=== PATIENT | female | born 1965 | race African-American/Black ===

== ENCOUNTER 2020-05-06 09:31 | Inpatient (IN) | payer OTHER ==
--- NOTE | 2020-05-06 09:54 | PDOC ---
History of Present Illness - General Chief Complaint: Allergic Reaction Stated Complaint: MOUTH PAIN Time Seen by Provider: 05/06/20 09:54 History Source: Patient Exam Limitations: No Limitations - History of Present Illness Initial Comments: 05/06/20 10:53 55F with PMH of HTN on lisinopril and obesity presents to the ED with upper lip swelling that started around 03:00 this morning. This has never happened before. Denies recent insect bites/stings or food allergies. Reports rash of arms bilaterally over the past few weeks. Denies difficulty breathing, difficulty swallowing, rash/hives, chest pain, or lightheadedness. PMH: as in HPI SH: see below Meds: carvedilol, lisinopril Allergies: PCN Tob/Etoh/Rec drugs: neg x3 PCP: CIELO Downs GENERAL/CONSTITUTIONAL: No fever or chills. No weakness. HEENT: No change in vision. No ear pain or discharge. No sore throat. CARDIOVASCULAR: No chest pain or shortness of breath RESPIRATORY: No cough, wheezing, or hemoptysis. GASTROINTESTINAL: No nausea, vomiting, diarrhea or constipation. GENITOURINARY: No dysuria, frequency, or change in urination. MUSCULOSKELETAL: No joint or muscle swelling or pain. No neck or back pain. SKIN: No rash NEUROLOGIC: No headache, vertigo, loss of consciousness, or change in strength/sensation. ENDOCRINE: No increased thirst. No abnormal weight change HEMATOLOGIC/LYMPHATIC: No anemia, easy bleeding, or history of blood clots. ALLERGIC/IMMUNOLOGIC: No hives or skin allergy. PE GENERAL: Awake, alert, and fully oriented; no acute distress HEAD: No signs of trauma, normocephalic, atraumatic EYES: PERRLA, EOMI, sclera anicteric, conjunctiva clear ENT: Auricles normal inspection, nares patent, moist mucosa, oropharynx clear without exudates. NECK: Normal ROM, supple, no LAD, JVD, or masses HEART: Regular rate and rhythm, normal S1/S2, no murmurs, rubs or gallops, peripheral pulses normal and equal bilaterally. LUNGS: No distress, speaks full sentences, clear to auscultation bilaterally ABDOMEN: Soft, nontender. No guarding, no rebound. No masses EXTREMITIES: Normal inspection, Normal range of motion, no edema. No clubbing or cyanosis. NEUROLOGICAL: CNII-XII grossly intact. Normal speech, no focal sensorimotor deficits SKIN: Warm, Dry, normal turgor, no rashes or lesions noted Assessment and Plan 1. Angioedema 2/2 RAVEN Inhibitor - basic labs, suspecting admission 2. Allergic reaction Lance Redman, PGY1 Emergency Medicine Past History - Medical History Allergies/Adverse Reactions: Allergies Allergy/AdvReac Type Severity Reaction Status Date / Time Penicillins Allergy Severe Verified 05/06/20 09:34 Home Medications: Ambulatory Orders Carvedilol [Coreg -] 12.5 mg PO BID 05/06/20 Lisinopril [Prinivil -] 40 mg PO DAILY 05/06/20 COPD: No HTN: Yes - Surgical History Cholecystectomy: Yes - Reproductive History Is Patient Now?: No - Immunization History Immunization Up to Date: Yes - Psycho-Social/Smoking History Smoking History: Never smoked - Substance Abuse Hx (Audit-C & DAST Scrn) How often the patient has a drink containing alcohol: Never Score: In Men: 4 or > Positive; In Women: 3 or > Positive: 0 Screen Result (Pos requires Nsg. Audit-10AR): Negative In the last yr the pt used illegal drug/Rx for NonMed reason: No Score: Yes response is considered Positive: 0 Screen Result (Positive result requires Nsg. DAST-10): Negative *Physical Exam - Vital Signs Last Vital Signs Temp Pulse Resp BP Pulse Ox 98.6 F 64 18 171/106 H 99 05/06/20 09:34 05/06/20 09:34 05/06/20 09:34 05/06/20 09:34 05/06/20 09:34 ED Treatment Course - LABORATORY CBC & Chemistry Diagram: 05/06/20 11:25 05/06/20 10:06 Medical Decision Making - Medical Decision Making 05/06/20 11:07 55F with PMH of HTN on lisinopril presents to the ED with upper lip swelling that started around 03:00 this morning. This has never happened before. Denies recent insect bites/stings or food allergies. Denies difficulty breathing, difficulty swallowing, rash/hives, chest pain, or lightheadedness. On exam: upper lip swelling w/o tongue swelling, oropharynx clear. Periorbital puffiness. Upper extremity eczematous appearing rash bilaterally. DDx: 1. Angioedema 2/2 RAVEN Inhibitor - basic labs, suspecting admission 2. Allergic reaction - unknown triggers 3. Contact dermatitis - skin involvement with pruritis, started new soap a few months ago - Given 125mg methylprednisolone, famotidine, and benadryl - observing for airway obstruction or worsening oropharyngeal edema 05/06/20 13:34 - Patient reports minimal improvement; on exam she looks unchanged clinically 05/06/20 13:56 - because the patient has not improved clincally, she will be admitted for observation. Spoke with Dr. Miguel and accepted admission. Discharge - Discharge Information Problems reviewed: Yes Clinical Impression/Diagnosis: Angioedema Qualifiers: Encounter type: initial encounter Qualified Code(s): T78.3XXA - Angioneurotic edema, initial encounter Condition: Stable - Admission Yes - Follow up/Referral - Patient Discharge Instructions - Post Discharge Activity
[2020-05-06] MEDS ORDERED: methylPREDNISolone NA SUCC 125 MG/2 ML VIAL IVPB ONE (11:09)
[2020-05-06] MEDS ORDERED: FAMOTIDINE 20 MG/50 ML IVPB 20 MG/50 ML MG IVPB ONE ×3 (11:12→22:45)
--- NOTE | 2020-05-06 11:15 | PDOC ---
Documentation entered by Nehemias Rodriguez SCRIBE, acting as scribe for Sharon Gonzalez MD. Sharon Gonzalez MD: This documentation has been prepared by the Jennifer rollins Xhesika, SCRIBE, under my direction and personally reviewed by me in its entirety. I confirm that the documentation accurately reflects all work, treatment, procedures, and medical decision making performed by me. Attending Attestation - Resident Resident Name: Lance Redman - ED Attending Attestation I have performed the following: I have examined & evaluated the patient, The case was reviewed & discussed with the resident, I agree w/resident's findings & plan, Exceptions are as noted - HPI HPI: 05/06/20 09:56 The patient is a 55 year old female with a significant PMH of HTN (on lisinopril) and obesity who presents to the emergency department for sudden onset upper lip swelling since 3AM. Pt denies any difficulty breathing. Pt denies any tongue swelling or difficulty swallowing. Pt denies any food allergies. did also note her eyes were a little swollen today has had a rash on her arms , itchy , like eczema that she developed over last few weeks. has been applying hydrocortisone with some relief. switched her soap thought maybe due to that. Allergies: Penicillins PCP: CIELO Downs 05/06/20 11:11 - Physicial Exam PE: 05/06/20 11:14 Awake alert no acute distress noting some mild periorbital edema there is upper lip swelling no uvular edema no tonsillar swelling no tongue swelling no stridor over the throat lungs are clear bilaterally no appreciated wheezing heart is regular with any murmurs rubs or gallops abdomen is soft nontender obese extremities are warm well perfused skin over the dorsum of her arms does show an eczematous type rash with small maculopapular areas with some dryness and scaling no raised plaques neurologically she is awake alert and oriented x3 - Medical Decision Making 05/06/20 11:14 55-year-old female history of obesity and hypertension on lisinopril here with some sort of allergic reaction versus angioedema secondary to her RAVEN inhibitor. Due to the concerns for perioperative edema and topical rash could possibly be due to to environmental trigger. However patient is advised that she should discontinue her RAVEN inhibitor we will trial Benadryl steroids and Pepcid IV she will be observed if symptoms not proved patient may require admission at this time there is no airway involvement she does have upper lip swelling Discharge - Discharge Information Problems reviewed: Yes Clinical Impression/Diagnosis: Angioedema Qualifiers: Encounter type: initial encounter Qualified Code(s): T78.3XXA - Angioneurotic edema, initial encounter Condition: Stable - Follow up/Referral - Patient Discharge Instructions - Post Discharge Activity
[2020-05-06] MEDS ORDERED: methylPREDNISolone NA SUCC 125 MG/2 ML VIAL ONE ×2 (11:17→11:18)
[2020-05-06 11:48] LABS: BASO % 1.3 % (0-2.0); HEMOGLOBIN 14.2 GM/dL (10.7-15.3); MCH 28.4 pg (25.7-33.7); MCHC 32.9 g/dl (32.0-36.0); MEAN CELL VOLUME 86.2 fl (80-96); MEAN PLT VOLUME 8.9 fl (7.5-11.1); MONO % 8.9 % (3.8-10.2); NEUT % 53.8 % (42.8-82.8); PLATELET COUNT 259 K/MM3 (134-434); RBC 4.98 M/mm3 (3.60-5.2); RDW 14.8 % (11.6-15.6); WHITE BLOOD COUNT 5.7 K/mm3 (4.0-10.0)
[2020-05-06 12:23] LABS: ALBUMIN 3.5 g/dl (3.4-5.0); BILIRUBIN,TOTAL 0.4 mg/dL (0.2-1); BLOOD UREA NITROGEN 14.4 mg/dL (7-18); CALCIUM 8.7 mg/dL (8.5-10.1); CREATININE 0.9 mg/dL (0.55-1.3); POTASSIUM 3.6 mmol/L (3.5-5.1); TOT PROT 7.2 g/dl (6.4-8.2)
[2020-05-06] MEDS ORDERED: LABETALOL HCL 5 MG/1 ML (100MG/20 ML VIAL) IVPUSH ONE (13:38)
[2020-05-06] MEDS ORDERED: LABETALOL HCL 5 MG/1 ML (200MG/40ML VIAL) IVPB ONE (13:52)
[2020-05-06] MEDS ORDERED: CARVEDILOL 12.5 MG TABLET (FP) PO ONE (14:02)
[2020-05-06] MEDS ORDERED: CARVEDILOL 12.5 MG TABLET (FP) ONE (14:08)
[2020-05-06] MEDS ORDERED: EPINEPHrine 1:1,000 0.3 MG/0.3 ML SYR IM PRN (14:27)
--- NOTE | 2020-05-06 14:27 | HP ---
CHIEF COMPLAINT: Lip swelling PCP: none HISTORY OF PRESENT ILLNESS: 55 year old morbidly obese woman with known history of hypertension who presents to the ED complaining of upper lip swelling which began early this morning. Patient reports waking up at about 3 am and feeling that her upper lip felt quite full. She denied any shortness of breath. She denied having eaten anything different the night before. She takes lisinopril and carvedilol for hypertension. Patient paid no attention and went back to sleep. However when she woke up this morning her upper lip felt even macario. She denied any shortness of breath nor difficulty swallowing saliva or any oral intake. She decided to go to the Ed ER course was notable for: (1) Received steroids, benadryl, PPI Recent Travel: none PAST MEDICAL HISTORY: as above PAST SURGICAL HISTORY: cholecystectomy Social History: Smoking: denied Alcohol: denied Drugs: denied Family history: Father in sleep (family surmising secondary to seizure). Mother of Brain cancer at 46 years of age Allergies Penicillins Allergy (Severe, Verified 05/06/20 09:34) HOME MEDICATIONS: Home Medications Medication Instructions Recorded Carvedilol [Coreg -] 12.5 mg PO BID 05/06/20 Lisinopril [Prinivil -] 40 mg PO DAILY 05/06/20 REVIEW OF SYSTEMS CONSTITUTIONAL: Absent: fever, chills, diaphoresis, generalized weakness, malaise, loss of appetite, weight change HEENT: Absent: rhinorrhea, nasal congestion, throat pain, throat swelling, difficulty swallowing, mouth swelling, ear pain, eye pain, visual changes CARDIOVASCULAR: Absent: chest pain, syncope, palpitations, irregular heart rate, lightheadedness, peripheral edema RESPIRATORY: Absent: cough, shortness of breath, dyspnea with exertion, orthopnea, wheezing, stridor, hemoptysis GASTROINTESTINAL: Absent: abdominal pain, abdominal distension, nausea, vomiting, diarrhea, constipation, melena, hematochezia GENITOURINARY: Absent: dysuria, frequency, urgency, hesitancy, hematuria, flank pain, genital pain MUSCULOSKELETAL: Absent: myalgia, arthralgia, joint swelling, back pain, neck pain SKIN: Absent: rash, itching, pallor HEMATOLOGIC/IMMUNOLOGIC: Absent: easy bleeding, easy bruising, lymphadenopathy, frequent infections ENDOCRINE: Absent: unexplained weight gain, unexplained weight loss, heat intolerance, cold intolerance NEUROLOGIC: Absent: headache, focal weakness or paresthesias, dizziness, unsteady gait, seizure, mental status changes, bladder or bowel incontinence PSYCHIATRIC: Absent: anxiety, depression, suicidal or homicidal ideation, hallucinations. PHYSICAL EXAMINATION Vital Signs - 24 hr 05/06/20 05/06/20 09:34 13:45 Temperature 98.6 F Pulse Rate 64 Pulse Rate [ 62 Left] Respiratory 18 16 Rate Blood Pressure 171/106 H Blood Pressure 230/115 H [Arm] O2 Sat by Pulse 99 99 Oximetry (%) GENERAL: Awake, alert, and fully oriented, in no acute distress. HEAD: Normal with no signs of trauma. EYES: Pupils equal, round and reactive to light, extraocular movements intact, sclera anicteric, conjunctiva clear. No lid lag. EARS, NOSE, THROAT: Ears normal, nares patent, oropharynx clear without exudates. Moist mucous membranes. NECK: Normal range of motion, supple without lymphadenopathy, JVD, or masses. LUNGS: Breath sounds equal, clear to auscultation bilaterally. No wheezes, and no crackles. No accessory muscle use. HEART: Regular rate and rhythm, normal S1 and S2 without murmur, rub or gallop. ABDOMEN: Soft, nontender, not distended, normoactive bowel sounds, no guarding, no rebound, no masses. No hepatomegaly or splenomegaly. MUSCULOSKELETAL: Normal range of motion at all joints. No bony deformities or tenderness. No CVA tenderness. UPPER EXTREMITIES: 2+ pulses, warm, well-perfused. No cyanosis. No clubbing. No peripheral edema. LOWER EXTREMITIES: 2+ pulses, warm, well-perfused. No calf tenderness. No peripheral edema. NEUROLOGICAL: Cranial nerves II-XII intact. Normal speech. Normal gait. PSYCHIATRIC: Cooperative. Good eye contact. Appropriate mood and affect. SKIN: Warm, dry, normal turgor, no rashes or lesions noted, normal capillary refill. Laboratory Results - last 24 hr 05/06/20 05/06/20 05/06/20 10:06 11:25 11:25 WBC 5.7 RBC 4.98 Hgb 14.2 Hct 43.0 MCV 86.2 MCH 28.4 MCHC 32.9 RDW 14.8 Plt Count 259 MPV 8.9 Absolute Neuts (auto) 3.1 Neutrophils % 53.8 Lymphocytes % 32.0 Monocytes % 8.9 Eosinophils % 4.0 Basophils % 1.3 Nucleated RBC % 0 Sodium 140 Potassium 3.6 Chloride 106 Carbon Dioxide 30 Anion Gap 4 L BUN 14.4 Creatinine 0.9 Est GFR (CKD-EPI)AfAm 84.61 Est GFR (CKD-EPI)NonAf 73.00 Random Glucose 84 Calcium 8.7 Total Bilirubin 0.4 AST 21 ALT 22 Alkaline Phosphatase 79 Total Protein 7.2 Albumin 3.5 Blood Type O NEGATIVE Antibody Screen Negative ASSESSMENT/PLAN: 1. Angioedema - lisinopril (home med) has been stopped - received IV steroids, benadryl, H2 angely. cont these - observe overnight for any resp distress 2. HTN - cont carvedilol - counseled stop lisinopril 3. Heparin Sq for DVT prophylaxis
--- NOTE | 2020-05-06 14:56 | EKG ---
Test Reason : Blood Pressure : / mmHG Vent. Rate : 061 BPM Atrial Rate : 061 BPM P-R Int : 140 ms QRS Dur : 100 ms QT Int : 434 ms P-R-T Axes : -24 -17 008 degrees QTc Int : 436 ms NORMAL SINUS RHYTHM NORMAL ECG NO PREVIOUS ECGS AVAILABLE Confirmed by Jhonatan Taylor ([id number]) on 05/06/2020 2:56:31 PM Referred By: Confirmed By:Jhonatan Taylor
[2020-05-06] MEDS ORDERED: methylPREDNISolone NA SUCC 40 MG/1 ML VIAL ONE ×2 (15:57→21:48)
[2020-05-06] MEDS: methylPREDNISolone NA SUCC 40 MG/1 ML VIAL IVPUSH SCH ×2 (16:02→21:54)
[2020-05-06] MEDS: FAMOTIDINE 20 MG/50 ML IVPB 20 MG/50 ML MG IVPB SCH (22:59)
[2020-05-07 02:30] VITALS: BMI 49.8
[2020-05-07] MEDS: methylPREDNISolone NA SUCC 40 MG/1 ML VIAL IVPUSH SCH ×2 (02:43→10:02)
[2020-05-07] MEDS ORDERED: NAPROXEN 375 MG TABLET PO ONE (03:30)
[2020-05-07] MEDS ORDERED: amLODIPine BESYLATE 5 MG TABLET (FP) PO SCH (10:00)
[2020-05-07] MEDS: FAMOTIDINE 20 MG/50 ML IVPB 20 MG/50 ML MG IVPB SCH ×2 (10:02→21:49)
[2020-05-07] MEDS ORDERED: ACETAMINOPHEN 500 MG TABLET (FP) PO ONE (10:22)
[2020-05-07] MEDS ORDERED: methylPREDNISolone NA SUCC 40 MG/1 ML VIAL IVPUSH SCH (10:45)
[2020-05-07] MEDS: CARVEDILOL 12.5 MG TABLET (FP) PO SCH ×2 (11:05→21:49)
--- NOTE | 2020-05-07 13:48 | PN ---
Teaching Attending Note Name of Resident: Kim De La Torre ATTENDING PHYSICIAN STATEMENT I saw and evaluated the patient. I reviewed the resident's note and discussed the case with the resident. I agree with the resident's findings and plan as documented. SUBJECTIVE: pt seen and examined OBJECTIVE: Last Vital Signs Temp Pulse Resp BP Pulse Ox 98.2 F 69 18 141/94 95 05/07/20 08:42 05/07/20 08:42 05/07/20 08:42 05/07/20 08:42 05/07/20 09:00 GENERAL: Awake, alert, and fully oriented, in no acute distress. HEAD: Normal with no signs of trauma. EYES: Pupils equal, round and reactive to light, sclera anicteric, conjunctiva clear. LUNGS: Breath sounds equal, clear to auscultation bilaterally. No wheezes, and no crackles. No accessory muscle use. HEART: Regular rate and rhythm, normal S1 and S2 ABDOMEN: Soft, nontender, not distended MUSCULOSKELETAL: Normal range of motion at all joints. No bony deformities or tenderness. No CVA tenderness. UPPER EXTREMITIES: 2+ pulses, warm, well-perfused. No cyanosis. No clubbing. No peripheral edema. LOWER EXTREMITIES: 2+ pulses, warm, well-perfused. No calf tenderness. No peripheral edema. NEUROLOGICAL: Cranial nerves II-XII intact. Normal speech. CBCD WBC 5.7 K/mm3 (4.0-10.0) 05/06/20 11:25 RBC 4.98 M/mm3 (3.60-5.2) 05/06/20 11:25 Hgb 14.2 GM/dL (10.7-15.3) 05/06/20 11:25 Hct 43.0 % (32.4-45.2) 05/06/20 11:25 MCV 86.2 fl (80-96) 05/06/20 11:25 MCHC 32.9 g/dl (32.0-36.0) 05/06/20 11:25 RDW 14.8 % (11.6-15.6) 05/06/20 11:25 Plt Count 259 K/MM3 (134-434) 05/06/20 11:25 MPV 8.9 fl (7.5-11.1) 05/06/20 11:25 CMP Sodium 140 mmol/L (136-145) 05/06/20 10:06 Potassium 3.6 mmol/L (3.5-5.1) 05/06/20 10:06 Chloride 106 mmol/L (98-107) 05/06/20 10:06 Carbon Dioxide 30 mmol/L (21-32) 05/06/20 10:06 Anion Gap 4 MMOL/L (8-16) L 05/06/20 10:06 BUN 14.4 mg/dL (7-18) 05/06/20 10:06 Creatinine 0.9 mg/dL (0.55-1.3) 05/06/20 10:06 Calcium 8.7 mg/dL (8.5-10.1) 05/06/20 10:06 Total Bilirubin 0.4 mg/dL (0.2-1) 05/06/20 10:06 AST 21 U/L (15-37) 05/06/20 10:06 ALT 22 U/L (13-61) 05/06/20 10:06 Alkaline Phosphatase 79 U/L (45-117) 05/06/20 10:06 Total Protein 7.2 g/dl (6.4-8.2) 05/06/20 10:06 Albumin 3.5 g/dl (3.4-5.0) 05/06/20 10:06 Active Medications Amlodipine Besylate (Norvasc -) 5 mg PO DAILY [facility] Last Admin: 05/07/20 10:02 Dose: 5 mg Documented by: Carvedilol (Coreg -) 12.5 mg PO BID [facility] Last Admin: 05/07/20 11:05 Dose: 12.5 mg Documented by: Diphenhydramine HCl (Benadryl Injection -) 25 mg IVPUSH Q4H [facility] Stop: 05/07/20 23:59 Last Admin: 05/07/20 10:03 Dose: 25 mg Documented by: Epinephrine (Epipen 0.3mg -) 0.3 mg IM ONCE PRN PRN Reason: SHORTNESS OF BREATH Heparin Sodium (Porcine) (Heparin -) 5,000 unit SQ Q8H-IV [place] Famotidine/Sodium Chloride (Pepcid 20 Mg Premixed Ivpb -) 20 mg in 50 mls @ 100 mls/hr IVPB BID [facility] Last Admin: 05/07/20 10:02 Dose: 100 mls/hr Documented by: Methylprednisolone Sodium Succinate (Solu-Medrol -) 40 mg IVPUSH Q8H-IV [place] Last Admin: 05/07/20 10:59 Dose: Not Given Documented by: ASSESSMENT AND PLAN: 55 year old morbidly obese woman with known history of hypertension who presents to the ED complaining of upper lip swelling. admitted for angioedema # Angioedema resolved, no respiratory distress lisinopril (home med) has been stopped received IV steroids, benadryl, H2 angley. cont these amlodipine started for BP c/w coreg d/c home HTN Heparin Sq for DVT prophylaxis
--- NOTE | 2020-05-07 16:33 | PN ---
Physical Exam: SUBJECTIVE: Patient seen and examined at bedside. no acute complaints., no CP. no SOB. singing in bed. OBJECTIVE: Vital Signs Period Temp Pulse Resp BP Sys/Ledesma Pulse Ox Last 24 Hr 97.8 F-98.7 F 68-96 15-18 112-156/82-97 95-99 GENERAL: The patient is awake, alert, and fully oriented, in no acute distress. obese HEAD: Normal with no signs of trauma. LUNGS: Breath sounds equal, clear to auscultation bilaterally, no accessory muscle use. HEART: Regular rate and rhythm, S1, S2 without murmur ABDOMEN: Soft, nontender, nondistended, normoactive bowel sounds, no guarding EXTREMITIES: 2+ pulses, warm, well-perfused, no edema. SKIN: Warm, dry, normal turgor, no rashes or lesions noted Laboratory Results - last 24 hr 05/06/20 11:25 COVID-19 ([facility]) Not detected Active Medications Generic Name Dose Route Start Last Admin Trade Name Freq PRN Reason Stop Dose Admin Amlodipine Besylate 5 mg 05/07/20 10:00 05/07/20 10:02 Norvasc - PO 5 mg DAILY [facility] Administration Carvedilol 12.5 mg 05/07/20 10:30 05/07/20 11:05 Coreg - PO 12.5 mg BID [facility] Administration Diphenhydramine HCl 25 mg 05/06/20 14:30 05/07/20 15:12 Benadryl Injection - IVPUSH 05/07/20 23:59 25 mg Q4H [place] Administration Epinephrine 0.3 mg 05/06/20 14:27 Epipen 0.3mg - IM ONCE PRN SHORTNESS OF BREATH Heparin Sodium (Porcine) 5,000 unit 05/07/20 18:00 Heparin - SQ Q8H-IV [facility] Famotidine/Sodium Chloride 20 mg in 50 mls @ 100 mls/hr 05/06/20 22:00 05/07/20 10:02 Pepcid 20 Mg Premixed Ivpb - IVPB 100 mls/hr BID [facility] Administration Methylprednisolone Sodium Succinate 40 mg 05/07/20 10:45 05/07/20 10:59 Solu-Medrol - IVPUSH Not Given Q8H-IV [place] ASSESSMENT/PLAN: 55 yo F PMH obesity, HTN presented to ED with Lip swelling. pt is admitted for angioedema likely 2/2 RAVEN-I Angioedema 2/2 RAVEN-I -resolved, no respiratory distress -DC home lisinopril - will dc steroids - cont pepcid HTN - will cont amlodipine -c/w home coreg - as pt SBP> 180 will defer dc today. will give another norvasc 5 now , then increase to norvasc 10 tomorrow am. will give lasix 20 now. lasix 20 in am - cont to monitor BP DVT prophylaxis: Hep SQ Visit type - Emergency Visit Emergency Visit: No - New Patient This patient is new to me today: Yes Date on this admission: 05/07/20 - Critical Care Critical Care patient: No - Discharge Referral Referred to [facility] Med P.C.: No ATTENDING PHYSICIAN STATEMENT I saw and evaluated the patient. I reviewed the resident's note and discussed the case with the resident. I agree with the resident's findings and plan as documented. SUBJECTIVE: OBJECTIVE: ASSESSMENT AND PLAN:
[2020-05-07] MEDS: HEPARIN NA (PORCINE) 5,000 UNITS/ML 1ML VIAL SQ SCH (18:20)
[2020-05-07] MEDS: SPIRONOLACTONE 25 MG TABLET PO SCH (18:20)
[2020-05-07] MEDS ORDERED: amLODIPine BESYLATE 5 MG TABLET (FP) PO ONE (18:38)
[2020-05-07] MEDS ORDERED: FUROSEMIDE 20 MG TABLET (FP) PO ONE (18:38)
[2020-05-08] MEDS ORDERED: CARVEDILOL 3.125 MG TABLET (FP) PO ONE (01:55)
[2020-05-08] MEDS: HEPARIN NA (PORCINE) 5,000 UNITS/ML 1ML VIAL SQ SCH ×2 (02:18→09:07)
[2020-05-08] MEDS ORDERED: amLODIPine BESYLATE 5 MG TABLET (FP) PO ONE (06:19)
[2020-05-08] MEDS ORDERED: amLODIPine BESYLATE 10 MG TABLET (FP) PO SCH (07:00)
[2020-05-08] MEDS: CARVEDILOL 12.5 MG TABLET (FP) PO SCH (09:07)
[2020-05-08] MEDS: SPIRONOLACTONE 25 MG TABLET PO SCH (09:07)
[2020-05-08] MEDS: FAMOTIDINE 20 MG/50 ML IVPB 20 MG/50 ML MG IVPB SCH (09:07)
[2020-05-08] MEDS ORDERED: FUROSEMIDE 20 MG TABLET (FP) PO SCH (10:00)
[2020-05-08 13:48] VITALS: BP 164/110; PULSE 63; TEMP 98.3
--- NOTE | 2020-05-08 22:30 | DS ---
Physical Exam: SUBJECTIVE: Patient seen and examined OBJECTIVE: Vital Signs Period Temp Pulse Resp BP Sys/Ledesma Pulse Ox Last 24 Hr 97.7 F-98.6 F 56-66 16-18 149-170/102-110 95-98 PHYSICAL EXAM GENERAL: The patient is awake, alert, and fully oriented, in no acute distress, obese HEAD: Normal with no signs of trauma. EYES: PERRL, extraocular movements intact, sclera anicteric, conjunctiva clear. ENT: Ears normal, nares patent, oropharynx clear without exudates, moist mucous membranes. NECK: Trachea midline, full range of motion, supple. LUNGS: Breath sounds equal, clear to auscultation bilaterally, no wheezes, no crackles, no accessory muscle use. HEART: Regular rate and rhythm, S1, S2 without murmur, rub or gallop. ABDOMEN: Soft, nontender, nondistended, normoactive bowel sounds, no guarding, no rebound, no hepatosplenomegaly, no masses. EXTREMITIES: 2+ pulses, warm, well-perfused, no edema. NEUROLOGICAL: Cranial nerves II through XII grossly intact. Normal speech, gait not observed. PSYCH: Normal mood, normal affect. SKIN: Warm, dry, normal turgor, no rashes or lesions noted. LABS Laboratory Last Values WBC 5.7 K/mm3 (4.0-10.0) 05/06/20 11:25 RBC 4.98 M/mm3 (3.60-5.2) 05/06/20 11:25 Hgb 14.2 GM/dL (10.7-15.3) 05/06/20 11:25 Hct 43.0 % (32.4-45.2) 05/06/20 11:25 MCV 86.2 fl (80-96) 05/06/20 11:25 MCH 28.4 pg (25.7-33.7) 05/06/20 11:25 MCHC 32.9 g/dl (32.0-36.0) 05/06/20 11:25 RDW 14.8 % (11.6-15.6) 05/06/20 11:25 Plt Count 259 K/MM3 (134-434) 05/06/20 11:25 MPV 8.9 fl (7.5-11.1) 05/06/20 11:25 Absolute Neuts (auto) 3.1 K/mm3 (1.5-8.0) 05/06/20 11:25 Neutrophils % 53.8 % (42.8-82.8) 05/06/20 11:25 Lymphocytes % 32.0 % (8-40) 05/06/20 11:25 Monocytes % 8.9 % (3.8-10.2) 05/06/20 11:25 Eosinophils % 4.0 % (0-4.5) 05/06/20 11:25 Basophils % 1.3 % (0-2.0) 05/06/20 11:25 Nucleated RBC % 0 % (0-0) 05/06/20 11:25 Sodium 140 mmol/L (136-145) 05/06/20 10:06 Potassium 3.6 mmol/L (3.5-5.1) 05/06/20 10:06 Chloride 106 mmol/L (98-107) 05/06/20 10:06 Carbon Dioxide 30 mmol/L (21-32) 05/06/20 10:06 Anion Gap 4 MMOL/L (8-16) L 05/06/20 10:06 BUN 14.4 mg/dL (7-18) 05/06/20 10:06 Creatinine 0.9 mg/dL (0.55-1.3) 05/06/20 10:06 Est GFR (CKD-EPI)AfAm 84.61 05/06/20 10:06 Est GFR (CKD-EPI)NonAf 73.00 05/06/20 10:06 Random Glucose 84 mg/dL (74-106) 05/06/20 10:06 Calcium 8.7 mg/dL (8.5-10.1) 05/06/20 10:06 Total Bilirubin 0.4 mg/dL (0.2-1) 05/06/20 10:06 AST 21 U/L (15-37) 05/06/20 10:06 ALT 22 U/L (13-61) 05/06/20 10:06 Alkaline Phosphatase 79 U/L (45-117) 05/06/20 10:06 Total Protein 7.2 g/dl (6.4-8.2) 05/06/20 10:06 Albumin 3.5 g/dl (3.4-5.0) 05/06/20 10:06 COVID-19 ([facility]ANK) Not detected (Not Detected) 05/06/20 11:25 Blood Type O NEGATIVE 05/06/20 11:25 Antibody Screen Negative 05/06/20 11:25 Home Medications Medication Instructions Recorded Amlodipine Besylate [Norvasc -] 10 mg PO DAILY #30 tablet 05/08/20 Carvedilol [Coreg -] 12.5 mg PO BID #60 tablet 05/08/20 Spironolactone [Aldactone -] 25 mg PO DAILY #30 tablet 05/08/20 HOSPITAL COURSE: 55 YO lady with medical hx of HTN, morbid obesity presented to ED complaining from swelling of lips of one day duration was admitted for management of angioedema. Pt recieved steroids, benadryl, and epinephrine and her symptoms resolved. Pt home medication of lisiopril was discontinued. Pt was found to have elevated BP (180s/100s) and her medications were adjusted to amlodipine, spironolactone and her home medications of coreg was increased. Bp improved to 155/95 in both arms. pt was discharged for outpatient follow up with her PCP for optimizing BP and advised to get work up for secondary causes of HTN. DASH diet, wt loss and supervised exercise was advised. Date of Admission:05/06/20 Date of Discharge: 05/08/20 Minutes to complete discharge: 40 Discharge Summary Problems reviewed: Yes Reason For Visit: ANGIOEDEMA,HYPERTENTION,OBESITY Condition: Improved - Instructions Diet, Activity, Other Instructions: You came into the hospital for swelling of your lips. You were given medications to help the swelling. Your blood pressure was found to be elevated, and your blood pressure medications were adjusted to control it. Please do NOT take lisinopril Please continue to take your coreg twice a day. Please take norvasc 10 mg daily, spironolactone 25mg daily Please follow up with your primary care physician in one week to continue to follow your blood pressures. we recommend you keep a log of your blood pressures. Please avoid eating high sodium foods Please start exercising and recommend weight loss as this may also help your blood pressure If you have new, worsening, or concerning symptoms please return to the ED or call 911. If your symptoms recur, or you notice lip swelling, difficulty breathing, itchiness, please return to the ED Disposition: HOME - Home Medications Comprehensive Discharge Medication List: Ambulatory Orders Amlodipine Besylate [Norvasc -] 10 mg PO DAILY #30 tablet 05/08/20 Carvedilol [Coreg -] 12.5 mg PO BID #60 tablet 05/08/20 Spironolactone [Aldactone -] 25 mg PO DAILY #30 tablet 05/08/20 This patient is new to me today: No Emergency Visit: Yes ED Registration Date: 05/06/20 Care time: The patient presented to the Emergency Department on the above date and was hospitalized for further evaluation of their emergent condition. Critical Care patient: No - Discharge Referral Referred to [facility] Med P.C.: No
== END 2020-05-08 13:48 | disposition home or self-care (01) | DRG 811 ==
LOC: JER 09:31 → JERBED 13:58 → J5S 05-07 00:16 → J7W 05-07 21:15
PROVIDERS: ADMIT Internal Medicine; ATTEND Student in an Organized Health Care Education/Training Program
DX: T78.3XXA Angioneurotic edema, initial encounter (principal); I10 Essential (primary) hypertension; E66.01 Morbid (severe) obesity due to excess calories; Z68.42 Body mass index [BMI] 45.0-49.9, adult; T46.4X5A Adverse effect of angiotensin-converting-enzyme inhibitors, initial encounter
CPT/HCPCS: 36415; 71045-TC-FY; 80053; 85025; 86850; 86900; 86901; 93005; 93010; 99285-25; J1644; U0003